=== PATIENT | female | born 1975 ===

== ENCOUNTER 2022-04-19 09:15 | Inpatient (IN) | payer OTHER ==
[~2022-04-19] VITALS: Ht 160 cm; Wt 66.2 kg
[~2022-04-19 09:15] MED LIST: NAPROXEN SODIU550 MG PO
[2022-04-19] MEDS ORDERED: ALLEGRA-D 24 H1 EACH PO (11:20)
== END 2022-04-24 10:33 | disposition home or self-care (01) | DRG 743 ==
LOC: O/R 04-23 06:24 → SURH 04-23 07:00 → OB/GYN 04-23 16:07
PROVIDERS: ADMIT Obstetrics & Gynecology Gynecology; ATTEND Obstetrics & Gynecology Gynecology
PROC: 0UT74ZZ Resection of Bilateral Fallopian Tubes, Percutaneous Endoscopic Approach (ICD-10-PCS; 2022-04-23)
PROC: 0UT94ZZ Resection of Uterus, Percutaneous Endoscopic Approach (ICD-10-PCS; principal; 2022-04-23 07:00)
DX: D25.1 Intramural leiomyoma of uterus (principal); D25.2 Subserosal leiomyoma of uterus; Z20.822 Contact with and (suspected) exposure to COVID-19

== ENCOUNTER 2022-05-02 15:09 | Inpatient (IN) | payer OTHER ==
[~2022-05-02] VITALS: Ht 160 cm; Wt 64.9 kg
[~2022-05-02 15:09] MED LIST changes: +ALLEGRA-D 24 H1 EACH PO
== END 2022-05-10 09:46 | disposition home or self-care (01) | DRG 389 ==
LOC: SEC-K 15:09 → OB/GYN 20:31
PROVIDERS: ADMIT Obstetrics & Gynecology Gynecology; ATTEND Obstetrics & Gynecology Gynecology
DX: K56.0 Paralytic ileus (principal); K91.89 Other postprocedural complications and disorders of digestive system; N73.0 Acute parametritis and pelvic cellulitis; Z90.710 Acquired absence of both cervix and uterus; I34.1 Nonrheumatic mitral (valve) prolapse